=== PATIENT | male | born 1975 | race Caucasian/White ===

== ENCOUNTER 2020-04-09 14:58 | Inpatient (IN) | payer MEDICAID ==
[~2020-04-09] VITALS: Ht 165.1 cm; Wt 73.1 kg
--- NOTE | 2020-04-09 15:12 | NUR ---
PT RETURNED TO LOBBY, NAD NOTED.
--- NOTE | 2020-04-09 15:27 | NUR ---
PLACED IN BED 11 FOR EVAL.
--- NOTE | 2020-04-09 15:30 | NUR ---
PT BIB SELF C/C ABD PAIN STS X [address] MELVIN HOYT
[2020-04-09 15:46] LABS: BASOPHIL % 0.4 % (0-2); PLATELET COUNT 172 x10^3mcL (130-400)
[2020-04-09 15:47] LABS: CALCIUM 8.5 mg/dL (8.5-10.1); CARBON DIOXIDE 25.1 mmol/L (21-32); CHLORIDE SERUM 96 mmol/L (98-107); CREATININE SERUM 0.8 mg/dL (0.7-1.3); GFR1 > 60 mL/min; GLUCOSE SERUM 164 mg/dL (74-106); POTASSIUM SERUM 3.3 mmol/L (3.5-5.1); SODIUM SERUM 132 mmol/L (136-145)
[2020-04-09 15:53] LABS: ALKALINE PHOSPHATASE 81 U/L (46-116); ALT/SGPT 44 U/L (16-63); BILIRUBIN TOTAL 1.06 mg/dL (0.20-1.00); TOTAL PROTEIN, SERUM 7.6 g/dL (6.4-8.2)
[2020-04-09 16:03] LABS: ALBUMIN 3.3 g/dL (3.4-5.0)
[2020-04-09 16:11] LABS: LIPASE 2851 IU/L (73-393)
[2020-04-09 16:13] LABS: AST/SGOT 61 U/L (15-37)
--- NOTE | 2020-04-09 16:19 | NUR ---
DR KEVIN AT BEDSIDE TO [facility]
--- NOTE | 2020-04-09 16:54 | NUR ---
XRAY AT BEDSIDE
--- NOTE | 2020-04-09 18:05 | NUR ---
US AT BEDSIDE
[2020-04-09 18:40] LABS: AMPHETAMINE QUAL UR NONE DETECTED (See below)
--- NOTE | 2020-04-09 19:10 | NUR ---
REPORT RECIEVED FROM LARISA LEGGETT. I WILL ASSUME FURTHER CARE OF THIS PT
--- NOTE | 2020-04-09 19:40 | NUR ---
REPORT CALLED TO LARISA LOPEZ ON MED SURG UNIT. HE WILL ASSUME FURTHER CARE OF THIS PT
[2020-04-09 19:47] LABS: T3 TOTAL 0.89 ng/mL
--- NOTE | 2020-04-09 20:00 | NUR ---
RECEIVED PT FROM ED VIA [facility], CAME IN DUE TO UPPER ABDOMINAL PAIN. AAOX4. DENIES HEADACHE/DIZZINESS. ABLE TO FOLLOW COMMANDS. NO SOB NOTED, LUNG SOUNDS CTA. DENIES CHEST PAIN/PRESSURE. STATED THAT HE HAS 6/10 UPPER ABDOMINAL PAIN AND BLOATING. ABDOMEN IS SOFT AND MILDLY DISTENDED. BOWEL SOUNDS ACTIVE. VOIDS. IV SITE ON THE LAC IS PATENT AND INTACT. SIDE RAILS UPX2. CALL LIGHT ON REACH. ENDORSED TO PRIMARY NURSE JOHN FOR CONTINUITY OF CARE
[2020-04-09 20:12] LABS: FREE T4 0.8 ng/dL (0.76-1.46); FREE THYROXINE INDEX 1.8 ug/dL (1.4-4.5); T4(THYROXINE) 4.8 ug/dL (4.7-13.3)
[2020-04-09 20:22] LABS: AMYLASE 260 U/L (25-115); MAGNESIUM 1.9 mg/dL (1.8-2.4); PHOSPHOROUS 2.5 mg/dL (2.5-4.9)
[2020-04-09 20:23] LABS: CHOLESTEROL 348 mg/dL (<200); CHOLESTEROL/HDL RATIO 13.4; HDL CHOLESTEROL 26 mg/dL (40-60); TRIGLYCERIDES 941 mg/dL (<150)
[2020-04-09 20:34] VITALS: BP 124/80
[2020-04-09 20:37] VITALS: Ht 165.1 cm; Wt 73.1 kg
[2020-04-09 22:05] LABS: microscopic required? NO
[2020-04-09 22:12] LABS: urine erythrocyte NEGATIVE (NEGATIVE)
--- NOTE | 2020-04-10 04:17 | NUR ---
PT RESTING IN BED. NO ACUTE RESP DISTRESS NOTED, BREATHING EVEN AND UNLABORED. DENIES CP/PRESSURE AT THIS TIME. BS+. VOIDS FREELY. AMBULATORY. IV TO RAC PATENT AND INTACT, FLUSHES WELL. ALL SAFETY PRECAUTIONS IN PLACE. WILL CONT TO MONITOR.
[2020-04-10 06:14] VITALS: BP 120/82
--- NOTE | 2020-04-10 07:15 | NUR ---
RECIEVED REPORT FROM NOC NURSE. PATIENT IS CURRENTLY AWAKE ALERT AND ORIENTED X 4. PATIENT IS RECIEVING IV FLUIDS NS AT 170/HOUR TO THE RAC. PATIENT REPORTS ABD PAIN, WILL ADMINISTER PAIN MEDICATION PER EMAR. IV SITE RAC 20 GUAGE PATENT AND INTACT. PATIENT CURRENTLY NPO EXCEPT MEDS. SAFETY PRECAUTIONS IN PLACE. CALL LIGHT WITHIN REACH. WILL CONTINUE TO PROVIDE CARE FOR PATIENT.
[2020-04-10 07:32] LABS: LIPASE 1585 IU/L (73-393); TRIGLYCERIDES 695 mg/dL (<150)
[2020-04-10 08:30] VITALS: BP 132/87
--- NOTE | 2020-04-10 08:53 | NUR ---
PATIENT GIVEN NORCO FOR ABD PAIN PER EMAR AND PHYSICIAN ORDER. CURRENTLY PAIN LEVEL 9/10.
--- NOTE | 2020-04-10 10:42 | NUR ---
PATIENT STARTED ON TRICOR PER RESIDENT PHYSICIAN ORDER. MEDICATION PURPOSE EXPLAINED TO PATIENT.
--- NOTE | 2020-04-10 11:20 | NUR ---
SPOKE WITH DR. DEAN REGARDING PATIENT'S POTASSIUM LEVEL. DR. DEAN SAID THAT HE WILL PLACE FURTHER ORDERS FOR POTASSIUM SUPPLMENTATION NEEDED
[2020-04-10 12:22] VITALS: BP 113/93
[2020-04-10 16:30] LABS: CALCIUM 8.6 mg/dL (8.5-10.1); CARBON DIOXIDE 27.4 mmol/L (21-32); CHLORIDE SERUM 98 mmol/L (98-107); CREATININE SERUM 0.7 mg/dL (0.7-1.3); GFR1 > 60 mL/min; GLUCOSE SERUM 98 mg/dL (74-106); POTASSIUM SERUM 4.4 mmol/L (3.5-5.1); SODIUM SERUM 132 mmol/L (136-145)
--- NOTE | 2020-04-10 18:07 | NUR ---
PATIENT IS CONTINUING TO RECIEVE IV FLUIDS AT THIS TIME. NS AT 170cc/HOUR INFUSING TO THE RAC. PATIENT REMAINS NPO AT THIS TIME DUE TO PANCREATITIS. PAIN WELL MANAGED THROUGHOUT THE SHIFT. PATIENT RECIEVED NORCO FOR PAIN PER EMAR IN THE AM. CONTINUING TO ADMINISTER IV FLUIDS AT THIS TIME AND MONITORING FOR PAIN. WILL ENDORSE ALL FURTHER CARE TO THE NOC NURSE.
[2020-04-10 18:25] VITALS: BP 128/85
--- NOTE | 2020-04-10 18:41 | NUR ---
PATIENT HAS DEVELOPED A FEVER OF 102. WILL ADMINISTER ANTIPYRETIC PER EMAR.
--- NOTE | 2020-04-10 18:56 | NUR ---
ACETAMINOPHEN ADMINISTERED PER EMAR FOR ELEVATED TEMPERATURE.
--- NOTE | 2020-04-10 19:15 | NUR ---
RECEIVED PT FROM AM NURSE, AA/O X 4, ABLE TO MAKE NEEDS KNOWN, DENIES HEADACHE/ DENIES DIZZINESS. MED SURG PT, DENIES CHEST PAIN/ CHEST PRESSURE. PULSES PALPABLE, NO EDEMA. LUNG SOUNDS CTA, RESPIRATIONS E/U ON RA. DENIES SOB. ACTIVE BS X 4 QUADS, DENIES N/V/D. VOIDS FREELY USING URINAL. SKIN INTACT. IV TO RAC INTACT, NO ERYTHEMA/ NO INFILTRATION. IV FLUIDS INFUSING WELL NS @ 170 CC/HR. DENIES ABD PAIN AT THIS TIME. ALL NEEDS MET. PT UNDERSTANDS NPO DIET EXCEPT MED. CALL BUTTON WITHIN REACH, WILL CONTINUE TO MONITOR.
[2020-04-10 21:16] VITALS: BP 125/80
--- NOTE | 2020-04-11 00:59 | NUR ---
PT IN BED RESTING WITH EYES CLOSED, BUT EASILY AROUSABLE. RESPIRATIONS E/U ON RA. NO S/S OF PAIN OR DISTRESS. IV FLUIDS INFUSING WELL. NO ACUTE DISTRESS AT THIS TIME. CALL BUTTON WITHIN REACH, WILL CONTINUE TO MONITOR.
--- NOTE | 2020-04-11 01:47 | NUR ---
PT COMPLAINED OF ABD PAIN, REQUESTING PRN MEDICATION. PO NORCO GIVEN PER EMAR. WILL CONTINUE TO MONITOR.
[2020-04-11 05:19] VITALS: BP 128/77
--- NOTE | 2020-04-11 06:50 | NUR ---
PT SLEPT IN INTERVALS THROUGHOUT THE SHIFT BUT EASILY AROUSABLE. DENIES PAIN AT THIS TIME. IV FLUIDS INFUSING WELL AT 170 CC/ HR. NO ACUTE CHANGES OVERNIGHT. CALL LIGHT WITHIN REACH, WILL ENDORSE CARE TO AM NURSE.
[2020-04-11 07:17] LABS: BASOPHIL % 0.2 % (0-2); PLATELET COUNT 139 x10^3mcL (130-400); RED CELL DISTRIBUTION WIDTH 13.9 % (11.5-14.5)
[2020-04-11 07:23] LABS: CALCIUM 8.3 mg/dL (8.5-10.1); CARBON DIOXIDE 23.7 mmol/L (21-32); CHLORIDE SERUM 98 mmol/L (98-107); CREATININE SERUM 0.7 mg/dL (0.7-1.3); GFR1 > 60 mL/min; GLUCOSE SERUM 79 mg/dL (74-106); PHOSPHOROUS 2.6 mg/dL (2.5-4.9); POTASSIUM SERUM 3.9 mmol/L (3.5-5.1); SODIUM SERUM 132 mmol/L (136-145)
[2020-04-11 08:01] VITALS: BP 127/84
[2020-04-11 12:18] VITALS: BP 130/87
[2020-04-11 16:40] VITALS: BP 140/102
[2020-04-11 18:04] VITALS: BP 143/86
--- NOTE | 2020-04-11 19:25 | NUR ---
RECEIVED PT FROM AM REGISTRY NURSE LARISA SIDDIQUI. PT AA/O X 4, ABLE TO MAKE NEEDS KNOWN, CLEAR SPEECH, DENIES HEADACHE/ DENIES DIZZINESS. MED SURG, DENIES CHEST PAIN/ CHEST PRESSURE. PULSES PALPABLE, NO EDEMA. LUNG SOUNDS CTA, RESPIRATIONS E/U ON RA, DENIES SOB. ACTIVE BS X 4 QUADS, DENIES N/V/D. DENIES ABD PAIN AT THIS TIME. BRP. AMBULATORY. SKIN INTACT. IV TO LAC INTACT, IV PUMP ALARMING SAYING HIGH PRESSURE. IV FLUIDS STOPPED AND WILL RE-ASSESS. DENIES PAIN. ALL NEEDS MET, CALL BUTTON WITHIN REACH, WILL CONTINUE TO MONITOR.
[2020-04-11 21:03] VITALS: BP 130/87
--- NOTE | 2020-04-11 23:37 | NUR ---
IV TO RAC CAUSING PAIN TO PT. IV REMOVED, CATHETER INTACT. NEW IV STARTED X 1 ATTEMPT, 22 GAUGE TO RFA, GOOD BLOOD RETURN, FLUSHING WELL. IV FLUIDS INFUSING WELL AT 170 CC/ HR. PT TOLERATED WELL, RESPITRATIONS E/U ON ROOM AIR, DENIES PAIN AT THIS TIME. NO ACUTE DISTRESS AT THIS TIME. CALL BUTTON WITHIN REACH, WILL CONTINUE TO MONITOR.
[2020-04-12 05:41] VITALS: BP 137/95
--- NOTE | 2020-04-12 05:59 | NUR ---
PT SLEPT IN INTERVALS THROUGHOUT THE NIGHT BUT EASILY AROUSABLE, DENIES PAIN. IV FLUIDS INFUSING WELL TO RFA. NO ACUTE CHANGES OVERNIGHT. CALL BUTTON WITHIN REACH, WILL ENDORSE CARE TO AM NURSE.
[2020-04-12 07:41] LABS: BASOPHIL % 0.2 % (0-2); PLATELET COUNT 158 x10^3mcL (130-400); RED CELL DISTRIBUTION WIDTH 13.8 % (11.5-14.5)
[2020-04-12 08:00] VITALS: BP 148/98
[2020-04-12 08:05] LABS: CALCIUM 8.9 mg/dL (8.5-10.1); CARBON DIOXIDE 27.9 mmol/L (21-32); CHLORIDE SERUM 100 mmol/L (98-107); CREATININE SERUM 0.8 mg/dL (0.7-1.3); GFR1 > 60 mL/min; GLUCOSE SERUM 99 mg/dL (74-106); LIPASE 443 IU/L (73-393); POTASSIUM SERUM 4.1 mmol/L (3.5-5.1); SODIUM SERUM 135 mmol/L (136-145)
--- NOTE | 2020-04-12 08:30 | NUR ---
ASSESSMENT COMPLETE NO DISTRESS NOTED PLAN OF CARE REVIEWED CALL LIGHT IN REACH WILL CONTINUE TO MONITOR AND ASSESS CONDITION GUARDED AT THIS TIEM
--- NOTE | 2020-04-12 12:48 | NUR ---
ALL NEEDS ANTICIPATED NO SIGNIFICANT CHANGES WILL CONTINUE TO MONITOR AND ASSESS
[2020-04-12 12:53] VITALS: BP 158/91
[2020-04-12] MEDS ORDERED: LIPI20 PO (15:53)
[2020-04-12] MEDS ORDERED: FENOFIBRATE145 M1 PO (15:53)
[2020-04-12 16:36] VITALS: BP 158/91
== END 2020-04-12 17:00 | disposition home or self-care (01) | DRG 282 ==
LOC: ED 14:58 → MU 17:48
PROVIDERS: Specialist; ADMIT Internal Medicine; ATTEND Internal Medicine
DX: K85.20 Alcohol induced acute pancreatitis without necrosis or infection (principal); E87.8 Other disorders of electrolyte and fluid balance, not elsewhere classified; E44.1 Mild protein-calorie malnutrition; K70.9 Alcoholic liver disease, unspecified; E87.1 Hypo-osmolality and hyponatremia; E80.6 Other disorders of bilirubin metabolism; E87.6 Hypokalemia; Z20.828 Contact with and (suspected) exposure to other viral communicable diseases; R73.03 Prediabetes; F10.10 Alcohol abuse, uncomplicated; E78.2 Mixed hyperlipidemia; E86.0 Dehydration; Y90.0 Blood alcohol level of less than 20 mg/100 ml
CPT/HCPCS: 83880; 84439; G0378; G0480; J1885; J2270; J7030